=== PATIENT | male | born 2000 | race Caucasian/White ===

== ENCOUNTER 2018-07-12 19:41 | Emergency (ER) | payer BC ==
[2018-07-12 19:48] VITALS: BP 153/103
--- NOTE | 2018-07-12 20:21 | EDM.PDOC ---
ED HPI GENERAL MEDICAL PROBLEM - General Chief Complaint: General Stated Complaint: SHARP CHEST PAINS,PUKED [id number] Time Seen by Provider: 07/12/18 20:03 Source of Information: Reports: Patient, RN, RN Notes Reviewed History Limitations: Reports: No Limitations - History of Present Illness INITIAL COMMENTS - FREE TEXT/NARRATIVE: Pt to ER with c/o pain in the left chest since he played basketball on Wednesday. Patient states he did get hit in the left chest with another person's shoulder/ body, then he fell to the floor. Patient states the pain has gradually getting worse, with the pain being sharp at times. He states he feels as if his heart is going to stop at times, and feels like it is racing at times. Patient denies any SOB, fever, cough. He states he did vomit x2 on Wednesday. States he used ibuprofen x1 today without any relief. Onset: Gradual Location: Reports: Chest Quality: Reports: Sharp Severity: Moderate Improves with: Reports: None Worsens with: Reports: None Associated Symptoms: Reports: Chest Pain Treatments DIRECTOR RADIO: Reports: NSAIDS Chest Pain Score (Numeric/FACES): 5 - Related Data Allergies Allergy/AdvReac Type Severity Reaction Status Date / Time Penicillins Allergy Hives Verified 07/12/18 19:53 Home Meds: Home Meds Ibuprofen 4 tab PO ASDIRECTED PRN 01/26/16 [History] Past Medical History Respiratory History: Reports: Pneumonia, Recurrent Other Respiratory History: as child - Past Surgical History HEENT Surgical History: Reports: Adenoidectomy, Myringotomy w Tube(s), Tonsillectomy Social & Family History - Tobacco Use Smoking Status *Q: Current Every Day Smoker Years of Tobacco use: 2 Packs/Tins Daily: 0.2 - Caffeine Use Caffeine Use: Reports: Soda - Recreational Drug Use Recreational Drug Use: No ED ROS GENERAL - Review of Systems Review Of Systems: ROS reveals no pertinent complaints other than HPI. ED EXAM, GENERAL - Physical Exam Exam: See Below Exam Limited By: No Limitations General Appearance: Alert, WD/WN, Anxious Eye Exam: Bilateral Eye: EOMI, Normal Inspection Ears: Normal External Exam, Hearing Grossly Normal Nose: Normal Inspection Throat/Mouth: Normal Inspection, Normal Voice, No Airway Compromise Head: Atraumatic, Normocephalic Neck: Normal Inspection, Supple, Non-Tender, Full Range of Motion Respiratory/Chest: No Respiratory Distress, Lungs Clear, Normal Breath Sounds, No Accessory Muscle Use, Chest Non-Tender Cardiovascular: Normal Peripheral Pulses, Regular Rate, Rhythm, No Edema, No Gallop, No JVD, No Murmur, No Rub Peripheral Pulses: 2+: Radial (L), Radial (R) GI/Abdominal: Normal Bowel Sounds, Soft, Non-Tender (Male) Exam: Deferred Rectal (Males) Exam: Deferred Back Exam: Normal Inspection, Full Range of Motion Extremities: Normal Inspection, Normal Range of Motion, Non-Tender, No Pedal Edema, Normal Capillary Refill Neurological: Alert, Oriented, CN II-XII Intact, Normal Cognition, Normal Gait, Normal Reflexes, No Motor/Sensory Deficits Psychiatric: Normal Mood, Anxious Skin Exam: Warm, Dry, Intact, Normal Color, No Rash Lymphatic: No Adenopathy EKG INTERPRETATION EKG Date: 07/12/18 Time: 20:17 Rhythm: NSR Rate (Beats/Min): 74 [place]: Normal P-Wave: Present QRS: Normal ST-T: Normal QT: Normal Comparison: NA - No Prior EKG Course - Vital Signs Last Recorded V/S: Last Vital Signs Temp 97.0 F 07/12/18 19:47 Pulse 72 07/12/18 19:47 Resp 18 07/12/18 19:47 BP 153/103 H 07/12/18 19:47 Pulse Ox 96 07/12/18 19:47 - Orders/Labs/Meds Orders: Active Orders 24 hr Category Date Time Status EKG Documentation Completion [RC] STAT Care 07/12/18 20:14 Active Orphenadrine [Norflex] Med 07/12/18 20:45 Active 60 mg IM Q12H Medication Orders Orphenadrine Citrate (Norflex) 60 mg IM Q12H LEONOR Last Admin: 07/12/18 20:54 Dose: 60 mg Meds: Medications Generic Name Dose Route Start Last Admin Trade Name Freq PRN Reason Stop Dose Admin Orphenadrine Citrate 60 mg 07/12/18 20:45 07/12/18 20:54 Norflex IM 60 mg Q12H LEONOR Administration Discontinued Medications Generic Name Dose Route Start Last Admin Trade Name Freq PRN Reason Stop Dose Admin Ketorolac Tromethamine 60 mg 07/12/18 20:45 07/12/18 20:51 Toradol IM 07/12/18 20:46 60 mg ONETIME ONE Administration - Radiology Interpretation Free Text/Narrative:: Chest xray: FINDINGS: Lungs: Unremarkable. No consolidation. Pleural space: Unremarkable. No pleural effusion. No pneumothorax. Heart/Mediastinum: Unremarkable. No cardiomegaly. Bones/joints: Unremarkable. IMPRESSION: No acute findings. Thank you for allowing us to participate in the care of your patient. Dictated and Authenticated by: Juan Ceballos MD 07/12/2018 8:46 PM Central Time ([place] & [place]) See rad report - Re-Assessments/Exams Free Text/Narrative Re-Assessment/Exam: 07/12/18 21:17 Patient states some pain relief after Ketorolac and Norflex injections. Patient admits to anxiety. Discussed findings with patient and mother. Encouraged him to get an appointment at the clinic for anxiety. Patient and mother agree and state understanding. Departure - Departure Time of Disposition: 21:18 Disposition: Home, Self-Care 01 Condition: Fair Clinical Impression: Anxiety, Muscle strain of anterior chest wall - Discharge Information *PRESCRIPTION DRUG MONITORING PROGRAM REVIEWED*: No *COPY OF PRESCRIPTION DRUG MONITORING REPORT IN PATIENT BARRIE: No Instructions: Panic Attack, [id number], Muscle Strain, [id number], Generalized Anxiety Disorder, Adult Forms: ED Department Discharge Additional Instructions: Follow up with your primary care facility May use Tylenol and/or Ibuprofen as directed for pain. Ibuprofen may be more beneficial. May take 600-800mg every 8 hours for pain with food for a few days only. - My Orders Last 24 Hours: My Active Orders 07/12/18 20:14 EKG Documentation Completion [RC] STAT 07/12/18 20:45 Orphenadrine [Norflex] 60 mg IM Q12H - Assessment/Plan Last 24 Hours: My Active Orders 07/12/18 20:14 EKG Documentation Completion [RC] STAT 07/12/18 20:45 Orphenadrine [Norflex] 60 mg IM Q12H
[2018-07-12] MEDS ORDERED: Ketorolac 30 MG/ML SDV IM ONE (20:45)
== END 2018-07-12 21:25 | disposition home or self-care (01) ==
LOC: DL.ED 19:41
DX: S29.011A Strain of muscle and tendon of front wall of thorax, initial encounter (principal); F41.9 Anxiety disorder, unspecified; F17.210 Nicotine dependence, cigarettes, uncomplicated; Z88.0 Allergy status to penicillin; W51.XXXA Accidental striking against or bumped into by another person, initial encounter; Y93.67 Activity, basketball
CPT/HCPCS: 71101; 93005; 96372; 99285; J1885; J2360

== ENCOUNTER 2018-07-16 15:49 | Emergency (ER) | payer BC ==
[2018-07-16 16:02] VITALS: BP 152/79
[2018-07-16] MEDS ORDERED: Sodium Chloride 0.9% 10 ML Syringe FLUSH PRN (16:12)
[2018-07-16] MEDS ORDERED: Pantoprazole 40 MG Vial IVPUSH ONE (16:12)
[2018-07-16] MEDS ORDERED: Sodium Chloride 0.9% 1,000 ML IV ONE (16:12)
[2018-07-16] MEDS ORDERED: LORazepam 2 MG/ML Syringe IVPUSH ONE (16:13)
[2018-07-16] MEDS ORDERED: GI Cocktail Oral Solution 30 ML PO ONE (16:13)
[2018-07-16] MEDS ORDERED: LORazepam 2 MG/ML Syringe IM ONE (16:43)
[2018-07-16 17:02] LABS: ANION GAP 16.3; CHLORIDE,CL 102 mmol/L (101-111); SODIUM,NA 139 mmol/L (135-145)
--- NOTE | 2018-07-16 17:25 | EDM.PDOC ---
Scribed by Sara Santacruz 07/16/18 2437 for Delia Magallon MD ED HPI GENERAL MEDICAL PROBLEM - General Chief Complaint: Respiratory Problem Stated Complaint: TROUBLE BREATHING Time Seen by Provider: 07/16/18 15:59 Source of Information: Reports: Patient, RN, RN Notes Reviewed History Limitations: Reports: No Limitations - History of Present Illness INITIAL COMMENTS - FREE TEXT/NARRATIVE: Patient presents to ER by POV with complaint of pain in his throat and midline neck which radiates up from the epigastric abdomen with sharp and burning pain and spasms. Pt states he has been belching a lot since these symptoms began on . He was seen here on 07/12/18, and followed after that in clinic with Dr. Velasco, but he is no better. Duration: Constant Location: Reports: Neck, Chest, Abdomen Quality: Reports: Burning, Sharp, Other (Spasms) Severity: Severe Improves with: Reports: None Worsens with: Reports: Eating Associated Symptoms: Reports: Other (Anxiety) Generalized Pain Score (Numeric/FACES): 6 - Related Data Allergies Allergy/AdvReac Type Severity Reaction Status Date / Time Penicillins Allergy Hives Verified 07/16/18 15:56 Home Meds: Home Meds Ibuprofen 4 tab PO ASDIRECTED PRN 01/26/16 [History] Cyclobenzaprine HCl 5 mg PO Q8H PRN 07/16/18 [History] methylPREDNISolone [Methylprednisolone] 4 mg PO DAILY 07/16/18 [History] Past Medical History HEENT History: Reports: None Cardiovascular History: Reports: None Respiratory History: Reports: Pneumonia, Recurrent Other Respiratory History: as child Gastrointestinal History: Reports: None Genitourinary History: Reports: None Musculoskeletal History: Reports: None Neurological History: Reports: None Psychiatric History: Reports: Anxiety Endocrine/Metabolic History: Reports: Obesity/BMI 30+ Hematologic History: Reports: None Immunologic History: Reports: None Oncologic (Cancer) History: Reports: None Dermatologic History: Reports: Cellulitis - Infectious Disease History Infectious Disease History: Reports: None - Past Surgical History Head Surgeries/Procedures: Reports: None HEENT Surgical History: Reports: Adenoidectomy, Myringotomy w Tube(s), Tonsillectomy Social & Family History - Family History Family Medical History: Noncontributory - Tobacco Use Smoking Status *Q: Former Smoker Used Tobacco, but Quit: Yes Month/Year Tobacco Last Used: 2019 - Caffeine Use Caffeine Use: Reports: None - Recreational Drug Use Recreational Drug Use: Yes Recreational Drug Type: Reports: Marijuana/Hashish - Living Situation & Occupation Living situation: Reports: with Family Occupation: Employed ED ROS GENERAL - Review of Systems Review Of Systems: ROS reveals no pertinent complaints other than HPI. ED EXAM, GENERAL - Physical Exam Exam: See Below Exam Limited By: No Limitations General Appearance: Alert, WD/WN, No Apparent Distress, Anxious, Obese Eye Exam: Bilateral Eye: Normal Inspection Ears: Normal External Exam, Normal Canal, Hearing Grossly Normal, Normal TMs Nose: Normal Inspection, Normal Mucosa, No Blood Throat/Mouth: Normal Inspection, Normal Lips, Normal Teeth, Normal Gums, Normal Oropharynx, Normal Voice, No Airway Compromise Head: Atraumatic, Normocephalic Neck: Normal Inspection, Supple, Non-Tender, Full Range of Motion. No: Lymphadenopathy (L), Lymphadenopathy (R) Respiratory/Chest: No Respiratory Distress, No Accessory Muscle Use, Wheezing ( mild intermittent, expiratory wheezes) Cardiovascular: Normal Peripheral Pulses, Regular Rate, Rhythm, No Edema, No Gallop, No JVD, No Murmur, No Rub GI/Abdominal: Normal Bowel Sounds, Soft, No Organomegaly, No Distention, Tender (at epigastric region). No: Guarding, Rigid, Rebound Back Exam: Normal Inspection Extremities: Normal Inspection Neurological: Alert, Oriented, CN II-XII Intact, Normal Cognition, Normal Gait, No Motor/Sensory Deficits Psychiatric: Anxious Skin Exam: Warm, Dry, Intact, Normal Color, No Rash EKG INTERPRETATION EKG Date: 07/16/18 Time: 16:40 Rhythm: Other (sinus rhythm) Rate (Beats/Min): 68 [place]: Normal P-Wave: Present QRS: Normal ST-T: Normal QT: Normal Comparison: NA - No Prior EKG Course - Vital Signs Last Recorded V/S: Last Vital Signs Temp 36.1 C 07/16/18 15:56 Pulse 60 07/16/18 15:56 Resp 20 07/16/18 15:56 BP 152/79 H 07/16/18 15:56 Pulse Ox 97 07/16/18 15:56 - Orders/Labs/Meds Orders: Active Orders 24 hr Category Date Time Status EKG 12 Lead [EKG Documentation Completion] [RC] STAT Care 07/16/18 16:12 Active Peripheral IV Care [RC] . DIRECTED Care 07/16/18 16:12 Active Chest 2V [CR] Stat Exams 07/16/18 16:41 Taken Sodium Chloride 0.9% [Saline Flush] Med 07/16/18 16:12 Active 10 ml FLUSH ASDIRECTED PRN Peripheral IV Insertion Adult [OM.PC] Stat Oth 07/16/18 16:12 Ordered Medication Orders Sodium Chloride (Saline Flush) 10 ml FLUSH ASDIRECTED PRN PRN Reason: Keep Vein Open Labs: Laboratory Tests 07/16/18 07/16/18 07/16/18 Range/Units 16:34 16:34 16:34 WBC 11.2 H (5.0-10.0) 10^3/uL RBC 6.02 (4.6-6.2) 10^6/uL Hgb 17.2 (14.0-18.0) g/dL Hct 49.2 (40.0-54.0) % MCV 81.7 (80-100) fL MCH 28.6 (27.0-34.0) pg MCHC 35.0 (33.0-35.0) g/dL Plt Count 246 (150-450) 10^3/uL Neut % (Auto) 74.4 (42.2-75.2) % Lymph % (Auto) 16.0 L (20.5-50.1) % Mcmullen % (Auto) 8.7 H (2-8) % Eos % (Auto) 0.6 L (1.0-3.0) % Baso % (Auto) 0.3 (0.0-1.0) % D-Dimer, Quantitative < 100 (0-400) ng/mL Sodium 139 (135-145) mmol/L Potassium 3.3 L (3.6-5.0) mmol/L Chloride 102 (101-111) mmol/L Carbon Dioxide 24.0 (21.0-31.0) mmol/L Anion Gap 16.3 BUN 13 (7-18) mg/dL Creatinine 1.1 (0.6-1.3) mg/dL Est Cr Clr Drug Dosing 117.58 mL/min Estimated GFR (MDRD) > 60 BUN/Creatinine Ratio 11.81 Glucose 99 (74-105) mg/dL Calcium 9.6 (8.4-10.2) mg/dl Total Bilirubin 1.0 (0.2-1.0) mg/dL AST 33 (10-42) IU/L ALT 43 (10-60) IU/L Alkaline Phosphatase 85 (42-121) IU/L Troponin I < 0.02 (0.00-0.02) ng/ml Total Protein 7.8 (6.7-8.2) g/dl Albumin 4.7 (3.2-5.5) g/dl Globulin 3.1 Albumin/Globulin Ratio 1.52 Amylase 26 L (28-100) U/L Lipase 20 L (22-51) U/L Meds: Medications Generic Name Dose Route Start Last Admin Trade Name Freq PRN Reason Stop Dose Admin Sodium Chloride 10 ml 07/16/18 16:12 Saline Flush FLUSH ASDIRECTED PRN Keep Vein Open Discontinued Medications Generic Name Dose Route Start Last Admin Trade Name Freq PRN Reason Stop Dose Admin Al Hydroxide/Mg Hydroxide 30 ml 07/16/18 16:13 07/16/18 16:38 Gi Cocktail PO 07/16/18 16:14 30 ml ONETIME ONE Administration Sodium Chloride 1,000 mls @ 999 mls/hr 07/16/18 16:12 Normal Saline IV 07/16/18 17:12 .BOLUS ONE Lorazepam 1 mg 07/16/18 16:13 Ativan IVPUSH 07/16/18 16:14 ONETIME ONE Lorazepam 1 mg 07/16/18 16:43 07/16/18 16:44 Ativan IM 07/16/18 16:44 1 mg ONETIME ONE Administration Pantoprazole Sodium 40 mg 07/16/18 16:12 Protonix Iv IVPUSH 07/16/18 16:13 ONETIME ONE - Radiology Interpretation Free Text/Narrative:: [facility] Final Radiology Report Call: [phone] assistance Online chat: [email or web address] Name: RAMESH KITCHEN Age: 18Years M Date: 07/16/2018 SSN: -- : 2000 Study: XR CHEST 2 VIEWS Requesting Physician: DELIA MAGALLON Images: 3 Addl Studies: Provided Clinical History: Contrast: Contrast Medium: Contrast Amount: Contrast Method: CONFIDENTIALITY STATEMENT This report is intended only for use by the referring physician, and only in accordance with law. If you received this in error, call [phone]. Page 1 of 1 EXAM: XR Chest, 2 Views EXAM DATE/TIME: 07/16/2018 4:48 PM CLINICAL HISTORY: 18 years old, male; Signs and symptoms; Other: Chest pain TECHNIQUE: XR of the chest, 2 views. COMPARISON: CR Ribs 2V w Chest Lt 07/12/2018 8:16 PM FINDINGS: Lungs: Unremarkable. No consolidation. Pleural space: Unremarkable. No pleural effusion. No pneumothorax. Heart/Mediastinum: Unremarkable. No cardiomegaly. Bones/joints: Unremarkable. IMPRESSION: No acute findings. Thank you for allowing us to participate in the care of your patient. Dictated and Authenticated by: Alberto Headley DO 07/16/2018 5:04 PM Central Time ([place] & [place]) Departure - Departure Time of Disposition: 17:22 Disposition: Home, Self-Care 01 Condition: Good Clinical Impression: Esophageal spasm - Discharge Information *PRESCRIPTION DRUG MONITORING PROGRAM REVIEWED*: Not Applicable *COPY OF PRESCRIPTION DRUG MONITORING REPORT IN PATIENT BARRIE: Not Applicable Instructions: Esophageal Spasm Forms: ED Department Discharge Additional Instructions: Rx: Carafate 1g Rx: Omeprazole 20mg Avoid spicy, fatty/fried/greasy foods, alcohol, chocolate, mint, and caffeine. Follow up in clinic in 1 to 2 weeks for recheck. - My Orders Last 24 Hours: My Active Orders 07/16/18 16:12 EKG 12 Lead [EKG Documentation Completion] [RC] STAT Peripheral IV Care [RC] . DIRECTED Sodium Chloride 0.9% [Saline Flush] 10 ml FLUSH ASDIRECTED PRN Peripheral IV Insertion Adult [OM.PC] Stat 07/16/18 16:41 Chest 2V [CR] Stat - Assessment/Plan Last 24 Hours: My Active Orders 07/16/18 16:12 EKG 12 Lead [EKG Documentation Completion] [RC] STAT Peripheral IV Care [RC] . DIRECTED Sodium Chloride 0.9% [Saline Flush] 10 ml FLUSH ASDIRECTED PRN Peripheral IV Insertion Adult [OM.PC] Stat 07/16/18 16:41 Chest 2V [CR] Stat I have read and agree with the documentation that has been completed regarding this visit. By signing this record, I attest that the documentation was completed in my physical presence and is an accurate record of the encounter.
== END 2018-07-16 17:31 | disposition home or self-care (01) ==
LOC: DL.ED 15:49
DX: K22.4 Dyskinesia of esophagus (principal); Z88.0 Allergy status to penicillin; Z79.899 Other long term (current) drug therapy; Z87.891 Personal history of nicotine dependence
CPT/HCPCS: 36415; 71046; 80053; 82150; 83690; 84484; 85025; 85379; 93005; 96372; 99285; A9270; J2060

== ENCOUNTER 2018-07-30 23:30 | Emergency (ER) | payer BC ==
[2018-07-31 00:18] VITALS: BP 156/98
--- NOTE | 2018-07-31 00:20 | EDM.PDOC ---
ED HPI GENERAL MEDICAL PROBLEM - General Chief Complaint: Headache Stated Complaint: HEADACHE X 3 DAYS Time Seen by Provider: 07/31/18 00:12 Source of Information: Reports: Patient History Limitations: Reports: No Limitations - History of Present Illness INITIAL COMMENTS - FREE TEXT/NARRATIVE: c/o ULLOA past few days after taking new NSAID for non specific chest pain Dx as pleurisy and was eval' here and clinic and GF. father states pt got worried about possible meningitis since his class mate from it many years ago. explained to pt on s/s meningitis. pt states ULLOA varies from dull to sharp and on -off. exedrin does help but pain returns after awhile. Frontal Headache Pain Score (Numeric/FACES): 8 - Related Data Allergies Allergy/AdvReac Type Severity Reaction Status Date / Time Penicillins Allergy Hives Verified 07/31/18 00:18 Home Meds: Home Meds Ibuprofen 4 tab PO ASDIRECTED PRN 01/26/16 [History] Cyclobenzaprine HCl 5 mg PO Q8H PRN 07/16/18 [History] methylPREDNISolone [Methylprednisolone] 4 mg PO DAILY 07/16/18 [History] Past Medical History HEENT History: Reports: None Cardiovascular History: Reports: None Respiratory History: Reports: Pneumonia, Recurrent Other Respiratory History: as child Gastrointestinal History: Reports: None Genitourinary History: Reports: None Musculoskeletal History: Reports: None Neurological History: Reports: None Psychiatric History: Reports: Anxiety Endocrine/Metabolic History: Reports: Obesity/BMI 30+ Hematologic History: Reports: None Immunologic History: Reports: None Oncologic (Cancer) History: Reports: None Dermatologic History: Reports: Cellulitis - Infectious Disease History Infectious Disease History: Reports: None - Past Surgical History Head Surgeries/Procedures: Reports: None HEENT Surgical History: Reports: Adenoidectomy, Myringotomy w Tube(s), Tonsillectomy Social & Family History - Family History Family Medical History: Noncontributory - Caffeine Use Caffeine Use: Reports: None - Living Situation & Occupation Living situation: Reports: with Family Occupation: Employed ED ROS GENERAL - Review of Systems Review Of Systems: ROS reveals no pertinent complaints other than HPI. - Physical Exam Exam: See Below Exam Limited By: No Limitations General Appearance: Alert, WD/WN, Anxious, Mild Distress Eye Exam: Bilateral Eye: PERRL (pupils ER @ 4mm) Ears: Hearing Grossly Normal Throat/Mouth: Normal Voice, No Airway Compromise Head Exam: Atraumatic Neck: Non-Tender, Full Range of Motion Respiratory/Chest: No Respiratory Distress Cardiovascular: Regular Rate, Rhythm GI/Abdominal: Soft, Non-Tender Neuro Exam (Abbreviated): Alert, Oriented, Normal Cognition, Normal Gait, No Motor/Sensory Deficits Psychiatric: Flat Affect Skin Exam: Warm, Dry, Normal Color Course - Vital Signs Last Recorded V/S: Last Vital Signs Temp 36.5 C 07/30/18 23:48 Pulse 58 L 07/30/18 23:48 Resp 18 07/30/18 23:48 BP 156/98 H 07/30/18 23:48 Pulse Ox 99 07/30/18 23:48 - Orders/Labs/Meds Orders: Active Orders 24 hr Category Date Time Status Head wo Cont [CT] Urgent Exams 07/31/18 00:11 Taken Ketorolac [Toradol] Med 07/31/18 01:28 Once 10 mg PO ONETIME ONE - Re-Assessments/Exams Free Text/Narrative Re-Assessment/Exam: 07/31/18 01:28 results discussed with pt Departure - Departure Time of Disposition: 01:28 Disposition: Home, Self-Care 01 Condition: Good Clinical Impression: Tension-type headache - Discharge Information Instructions: General Headache Without Cause, [id number] Forms: ED Department Discharge Additional Instructions: 1) rest 2) follow up at clinic rx given; toradol 10mg bid prn x 12 - My Orders Last 24 Hours: My Active Orders 07/31/18 00:11 Head wo Cont [CT] Urgent 07/31/18 01:28 Ketorolac [Toradol] 10 mg PO ONETIME ONE - Assessment/Plan Last 24 Hours: My Active Orders 07/31/18 00:11 Head wo Cont [CT] Urgent 07/31/18 01:28 Ketorolac [Toradol] 10 mg PO ONETIME ONE
[2018-07-31] MEDS ORDERED: Ketorolac 10 MG Tab PO ONE (01:28)
== END 2018-07-31 01:38 | disposition home or self-care (01) ==
LOC: DL.ED 23:30 → EEVIPCON 23:30 → DL.ED 07-31 01:38
DX: G44.209 Tension-type headache, unspecified, not intractable (principal); Z88.0 Allergy status to penicillin; Z79.899 Other long term (current) drug therapy
CPT/HCPCS: 70450; 99283; A9270

== ENCOUNTER 2018-08-08 00:52 | Emergency (ER) | payer BC ==
[2018-08-08 00:58] VITALS: BP 169/103
--- NOTE | 2018-08-08 01:16 | EDM.PDOC ---
ED HPI GENERAL MEDICAL PROBLEM - General Chief Complaint: Chest Pain Stated Complaint: CHEST PAIN AND ARM IS NUMB Time Seen by Provider: 08/08/18 01:00 Source of Information: Reports: Patient History Limitations: Reports: No Limitations - History of Present Illness INITIAL COMMENTS - FREE TEXT/NARRATIVE: This 18 yo male patient reports to the ED with chest pain that started at 1600 yesterday afternoon. The patient reports he had generalized chest pain that caused both arms to go "numb". The patient reports at this time his left arm still has numbness. The patient reports he has had intermittent similar episodes in the past month. The patient has been seen in the ED as well as seen by his primary care facility for these symptoms. The patient is currently taking medication for acid reflux, a muscle relaxer and an antiinflammatory medication, but continues to have symptoms. Onset Date: 08/07/18 Onset Time: 16:00 Duration: Constant, Improving Location: Reports: Chest, Upper Extremity, Left, Upper Extremity, Right Quality: Reports: Other Severity: Moderate Improves with: Reports: None Worsens with: Reports: None Associated Symptoms: Reports: No Other Symptoms Left Chest Pain Score (Numeric/FACES): 8 - Related Data Allergies Allergy/AdvReac Type Severity Reaction Status Date / Time Penicillins Allergy Hives Verified 08/08/18 01:16 Home Meds: Home Meds Omeprazole 20 mg PO DAILY 08/08/18 [History] tiZANidine [Zanaflex] 4 mg PO TID 08/08/18 [History] traZODone HCl [Trazodone HCl] 50 mg PO DAILY 08/08/18 [History] Past Medical History HEENT History: Reports: None Cardiovascular History: Reports: None Respiratory History: Reports: Pneumonia, Recurrent Other Respiratory History: as child Gastrointestinal History: Reports: None Genitourinary History: Reports: None Musculoskeletal History: Reports: None Neurological History: Reports: None Psychiatric History: Reports: Anxiety Endocrine/Metabolic History: Reports: Obesity/BMI 30+ Hematologic History: Reports: None Immunologic History: Reports: None Oncologic (Cancer) History: Reports: None Dermatologic History: Reports: Cellulitis - Infectious Disease History Infectious Disease History: Reports: None - Past Surgical History Head Surgeries/Procedures: Reports: None HEENT Surgical History: Reports: Adenoidectomy, Myringotomy w Tube(s), Tonsillectomy Social & Family History - Family History Family Medical History: Noncontributory - Caffeine Use Caffeine Use: Reports: None - Living Situation & Occupation Living situation: Reports: with Family Occupation: Employed ED ROS GENERAL - Review of Systems Review Of Systems: ROS reveals no pertinent complaints other than HPI. ED EXAM, GENERAL - Physical Exam Exam: See Below Exam Limited By: No Limitations General Appearance: Alert, WD/WN, Anxious (due to chest pain and arm numbness) Eye Exam: Bilateral Eye: EOMI, Normal Inspection, PERRL Ears: Normal External Exam, Normal Canal, Hearing Grossly Normal, Normal TMs Nose: Normal Inspection, Normal Mucosa, No Blood Throat/Mouth: Normal Inspection, Normal Lips, Normal Teeth, Normal Gums, Normal Oropharynx, Normal Voice, No Airway Compromise Head: Atraumatic, Normocephalic Neck: Normal Inspection, Supple, Non-Tender, Full Range of Motion Respiratory/Chest: No Respiratory Distress, Lungs Clear, Normal Breath Sounds, No Accessory Muscle Use, Chest Non-Tender Cardiovascular: Normal Peripheral Pulses, Regular Rate, Rhythm, No Edema, No Gallop, No JVD, No Murmur, No Rub GI/Abdominal: Normal Bowel Sounds, Soft, Non-Tender, No Organomegaly, No Distention, No Abnormal Bruit, No Mass, Other (obese) (Male) Exam: Deferred Rectal (Males) Exam: Deferred Back Exam: Normal Inspection, Full Range of Motion, NT Extremities: Normal Inspection, Normal Range of Motion, Non-Tender, Normal Capillary Refill, No Pedal Edema Neurological: Alert, Oriented, CN II-XII Intact, Normal Cognition, Normal Gait, Normal Reflexes, No Motor/Sensory Deficits Psychiatric: Normal Affect, Normal Mood Skin Exam: Warm, Dry, Intact, Normal Color, No Rash Lymphatic: No Adenopathy Course - Vital Signs Last Recorded V/S: Last Vital Signs Temp 37.1 C 08/08/18 00:57 Pulse 63 08/08/18 00:57 Resp 13 08/08/18 00:57 BP 169/103 H 08/08/18 00:57 Pulse Ox 99 08/08/18 00:57 - Orders/Labs/Meds Orders: Active Orders 24 hr Category Date Time Status EKG Documentation Completion [RC] URGENT Care 08/08/18 01:01 Active Chest 1V Frontal [CR] Urgent Exams 08/08/18 01:11 Taken Labs: Laboratory Tests 08/08/18 08/08/18 Range/Units 01:12 01:12 WBC 12.0 H (5.0-10.0) 10^3/uL RBC 5.85 (4.6-6.2) 10^6/uL Hgb 16.7 (14.0-18.0) g/dL Hct 48.1 (40.0-54.0) % MCV 82.2 (80-100) fL MCH 28.5 (27.0-34.0) pg MCHC 34.7 (33.0-35.0) g/dL Plt Count 190 (150-450) 10^3/uL Neut % (Auto) 66.4 (42.2-75.2) % Lymph % (Auto) 21.8 (20.5-50.1) % [place] % (Auto) 9.0 H (2-8) % Eos % (Auto) 2.5 (1.0-3.0) % Baso % (Auto) 0.3 (0.0-1.0) % Sodium 139 (135-145) mmol/L Potassium 3.6 (3.6-5.0) mmol/L Chloride 103 (101-111) mmol/L Carbon Dioxide 26.0 (21.0-31.0) mmol/L Anion Gap 13.6 BUN 20 H (7-18) mg/dL Creatinine 0.8 (0.6-1.3) mg/dL Est Cr Clr Drug Dosing 161.67 mL/min Estimated GFR (MDRD) > 60 BUN/Creatinine Ratio 25.00 Glucose 95 (74-105) mg/dL Calcium 9.6 (8.4-10.2) mg/dl Total Bilirubin 0.9 (0.2-1.0) mg/dL AST 20 (10-42) IU/L ALT 30 (10-60) IU/L Alkaline Phosphatase 69 (42-121) IU/L Troponin I < 0.02 (0.00-0.02) ng/ml Total Protein 7.1 (6.7-8.2) g/dl Albumin 4.3 (3.2-5.5) g/dl Globulin 2.8 Albumin/Globulin Ratio 1.54 Meds: Medications Discontinued Medications Generic Name Dose Route Start Last Admin Trade Name Freq PRN Reason Stop Dose Admin Ketorolac Tromethamine 30 mg 08/08/18 01:55 08/08/18 02:02 Toradol IM 08/08/18 01:56 30 mg ONETIME ONE Administration Lorazepam 1 mg 08/08/18 01:55 08/08/18 02:01 Ativan PO 08/08/18 01:56 1 mg ONETIME ONE Administration - Re-Assessments/Exams Free Text/Narrative Re-Assessment/Exam: 08/08/18 01:56 Discussed the examination, x-ray and lab results with the patient. The patient was advised that stress and anxiety may have something to do with his current symptoms. The patient was given an injection of Toradol and an oral dose of Ativan while in the ED. Departure - Departure Time of Disposition: 02:36 Disposition: Home, Self-Care 01 Condition: Fair Clinical Impression: Nonspecific chest pain, Anxiety about health Instructions: Nonspecific Chest Pain, [id number], Living With Anxiety Forms: ED Department Discharge Care Plan Goals: The patient was advised of the examination, lab, EKG and x-ray results during the visit. The patient was given an injection of Toradol and an oral dose of Ativan while in the ED with improvement in his symptoms. The patient was encouraged to follow-up with his primary care facility for continued evaluation and further treatment. If the patient has any additional symptoms or concerns, the patient should either return to the emergency department or visit his primary care facility. - My Orders Last 24 Hours: My Active Orders 08/08/18 01:01 EKG Documentation Completion [RC] URGENT 08/08/18 01:11 Chest 1V Frontal [CR] Urgent - Assessment/Plan Last 24 Hours: My Active Orders 08/08/18 01:01 EKG Documentation Completion [RC] URGENT 08/08/18 01:11 Chest 1V Frontal [CR] Urgent
[2018-08-08 01:39] LABS: ANION GAP 13.6; CHLORIDE,CL 103 mmol/L (101-111); SODIUM,NA 139 mmol/L (135-145)
[2018-08-08] MEDS ORDERED: Ketorolac 30 MG/ML SDV IM ONE (01:55)
[2018-08-08] MEDS ORDERED: LORazepam 1 MG Tab PO ONE (01:55)
== END 2018-08-08 02:45 | disposition home or self-care (01) ==
LOC: DL.ED 00:52
DX: R07.9 Chest pain, unspecified (principal); F41.9 Anxiety disorder, unspecified; Z88.0 Allergy status to penicillin; Z79.899 Other long term (current) drug therapy
CPT/HCPCS: 36415; 71045; 80053; 84484; 85025; 93005; 96372; 99285; A9270-GY; J1885

== ENCOUNTER 2018-09-09 05:48 | Day surgery (SDC) | payer BC ==
[~2018-09-09 05:48] MED LIST: Midazolam 1 MG/ML 2 ML SDV ONE; fentaNYL 100 MCG/2 ML SDV ONE
[2018-09-09] MEDS ORDERED: fentaNYL 100 MCG/2 ML SDV IV ONE ×3 (05:49→07:00)
[2018-09-09] MEDS ORDERED: Midazolam 1 MG/ML 2 ML SDV IV ONE ×3 (05:49→07:01)
[2018-09-09] MEDS ORDERED: Sodium Chloride 0.9% 10 ML Syringe FLUSH PRN (06:00)
[2018-09-09] MEDS ORDERED: Dextrose 5%-0.45% NaCl 1,000 ML IV SCH (06:00)
--- NOTE | 2018-09-09 07:30 | OR ---
DATE: 09/09/2018 PROCEDURES PERFORMED: Esophagogastroduodenoscopy and multiple pinch biopsies. INSTRUMENT USED: [id number]-HQ190 Olympus video panendoscope. PREMEDICATIONS: No oral or topical anesthesia used. Fentanyl 100 mcg intravenous, Versed 2 mg intravenous. Nasal O2 cannula. The procedure was done under pulse ox, BP recording, and theatrical rigger. INDICATIONS: The patient with longstanding heartburn, unexplained and not responsive to medical measures, on PPI. Esophagogastroduodenoscopy is performed for detection of any active erosive lesions, Benitez esophagus and/or malignancy also under consideration. H. pylori status to be determined. Endoscopic hemostasis therapy if needed. DESCRIPTION OF PROCEDURE: The scope was passed with ease. Adequate visualization of the esophagus was made from proximal to distal areas. No upper esophageal lesions identified. No distal esophageal stricture. No uphill or downhill esophageal varices. No [place]-Lux tear. No evidence of erosive esophagitis by Coke criteria. No esophageal polyp or tumor mass identified. Z-line was seen at around 40 cm distal to the oral verge, configuration consistent with grade 1 by ZAP classification. No proximal gastric varices noted. Gastric fundus examination by retroflexion showed no polypoid lesions. No gastric ulcer, malignant mass, or vascular ectasia identified. Duodenal bulb showed no ulcer. Visualized second part of the duodenum was unremarkable. Multiple pinch biopsies were taken from the gastric antrum and proximal body and sent for PyloriTek test for H. pylori, and if negative in an hour, the tissue was to be sent for histopathology. No bleeding was noted from any of the visualized areas at the completion of examination. Photographs were taken of the duodenal bulb, gastric antrum, fundus, and distal esophagus. IMPRESSION: Normal study. The patient tolerated the procedure well. [facility] /[id number]
[2018-09-09 13:32] VITALS: BP 147/79
== END 2018-09-09 10:08 | disposition home or self-care (01) ==
LOC: DL.ENDO 05:48
PROVIDERS: ATTEND Internal Medicine Gastroenterology
DX: R12 Heartburn (principal); F41.1 Generalized anxiety disorder; E66.09 Other obesity due to excess calories; Z68.41 Body mass index [BMI] 40.0-44.9, adult; Z88.0 Allergy status to penicillin
CPT/HCPCS: 43239; 87077; J2250; J3010; J7042

== ENCOUNTER 2018-12-06 13:00 | Emergency (ER) | payer BC, MEDICAID ==
[2018-12-06 13:09] VITALS: BP 149/92
--- NOTE | 2018-12-06 13:12 | EDM.PDOC ---
ED HPI GENERAL MEDICAL PROBLEM - General Chief Complaint: General Stated Complaint: SHAKY, DIZZY Time Seen by Provider: 12/06/18 13:11 Source of Information: Reports: Patient, Old Records, RN, RN Notes Reviewed History Limitations: Reports: No Limitations - History of Present Illness INITIAL COMMENTS - FREE TEXT/NARRATIVE: Pt presents to ER from work with c/o working out in the heat and direct sun since 0630HRS this morning, and this afternoon he developed lightheadedness, very dry mouth, feeling very hot, and had and generalized shaking. Pt denies chest pain, N/V, headache, abdominal pain, palpitations, or syncope. Onset: Today Duration: Waxing/Waning Location: Reports: Generalized Quality: Reports: Other (Denies pain) Severity: Moderate Improves with: Reports: None Worsens with: Reports: Other (Activity) Associated Symptoms: Reports: No Other Symptoms - Related Data Allergies Allergy/AdvReac Type Severity Reaction Status Date / Time amoxicillin Allergy Other Verified 12/06/18 13:14 Penicillins Allergy Hives Verified 12/06/18 13:14 Home Meds: Home Meds Omeprazole 40 mg PO ONETIME 12/06/18 [History] buPROPion HCl [Wellbutrin Xl] 300 mg PO DAILY 12/06/18 [History] hydrOXYzine HCl [hydrOXYzine] 25 mg PO TID 12/06/18 [History] Past Medical History HEENT History: Cardiovascular History: Reports: Other (See Below) Other Cardiovascular History: chest pain Respiratory History: Reports: Pneumonia, Recurrent Other Respiratory History: as child Gastrointestinal History: Reports: GERD Genitourinary History: Reports: None Musculoskeletal History: Reports: None Neurological History: Reports: None Psychiatric History: Reports: Anxiety Endocrine/Metabolic History: Reports: Obesity/BMI 30+ Hematologic History: Reports: None Immunologic History: Reports: None Oncologic (Cancer) History: Reports: None Dermatologic History: Reports: Cellulitis - Infectious Disease History Infectious Disease History: Reports: None - Past Surgical History Head Surgeries/Procedures: Reports: None HEENT Surgical History: Reports: Adenoidectomy, Myringotomy w Tube(s), Tonsillectomy Social & Family History - Family History Family Medical History: Noncontributory - Caffeine Use Caffeine Use: Reports: None - Living Situation & Occupation Living situation: Reports: with Family Occupation: Employed ED ROS GENERAL - Review of Systems Review Of Systems: ROS reveals no pertinent complaints other than HPI. ED EXAM, GENERAL - Physical Exam Exam: See Below Exam Limited By: No Limitations General Appearance: Alert, WD/WN, No Apparent Distress, Obese Eye Exam: Bilateral Eye: Normal Inspection Ears: Normal External Exam, Hearing Grossly Normal Nose: Normal Inspection, Normal Mucosa, No Blood Throat/Mouth: Normal Lips, Normal Teeth, Normal Gums, Normal Oropharynx, Normal Voice, No Airway Compromise, Other (Dry oral membranes) Head: Atraumatic, Normocephalic Neck: Normal Inspection, Supple, Non-Tender, Full Range of Motion. No: Lymphadenopathy (L), Lymphadenopathy (R) Respiratory/Chest: No Respiratory Distress, Lungs Clear, Normal Breath Sounds, No Accessory Muscle Use, Chest Non-Tender Cardiovascular: Regular Rate, Rhythm, No Edema, No Murmur GI/Abdominal: Normal Bowel Sounds, Soft, Non-Tender, Other (Benign obese abdomen ) Back Exam: Normal Inspection Extremities: Normal Inspection, Normal Range of Motion, Non-Tender, Normal Capillary Refill, No Pedal Edema Neurological: Alert, Oriented, CN II-XII Intact, Normal Cognition, Normal Gait, No Motor/Sensory Deficits Psychiatric: Normal Affect, Anxious Skin Exam: Warm, Dry, Intact, Normal Color, No Rash EKG INTERPRETATION EKG Date: 12/06/18 Time: 13:37 Rhythm: NSR [place]: Normal P-Wave: Present QRS: Normal ST-T: Normal QT: Normal Comparison: No Change Course - Vital Signs Last Recorded V/S: Last Vital Signs Temp 97.8 F 12/06/18 13:08 Pulse 78 12/06/18 13:08 Resp 18 12/06/18 13:08 BP 149/92 H 12/06/18 13:08 Pulse Ox 100 12/06/18 13:08 Orthostatic Blood Pressure [ 132/80 Standing] Orthostatic Blood Pressure [ 154/87 Sitting] Orthostatic Blood Pressure [ 138/81 Supine] No orthostatic dizziness. - Orders/Labs/Meds Orders: Active Orders 24 hr Category Date Time Status EKG 12 Lead [EKG Documentation Completion] [RC] STAT Care 12/06/18 13:17 Active Orthostatic Vital Signs [RC] ASDIRECTED Care 12/06/18 13:16 Active Peripheral IV Care [RC] . DIRECTED Care 12/06/18 13:17 Active Sodium Chloride 0.9% [Saline Flush] Med 12/06/18 13:16 Active 10 ml FLUSH ASDIRECTED PRN Peripheral IV Insertion Adult [OM.PC] Stat Oth 12/06/18 13:17 Ordered Medication Orders Sodium Chloride (Saline Flush) 10 ml FLUSH ASDIRECTED PRN PRN Reason: Keep Vein Open Last Admin: 12/06/18 13:40 Dose: 10 ml Labs: Laboratory Tests 12/06/18 12/06/18 12/06/18 Range/Units 13:37 13:37 13:37 WBC 8.3 (5.0-10.0) 10^3/uL RBC 6.32 H (4.6-6.2) 10^6/uL Hgb 17.4 (14.0-18.0) g/dL Hct 51.3 (40.0-54.0) % MCV 81.2 (80-100) fL MCH 27.5 (27.0-34.0) pg MCHC 33.9 (33.0-35.0) g/dL Plt Count 203 (150-450) 10^3/uL Neut % (Auto) 60.0 (42.2-75.2) % Lymph % (Auto) 25.0 (20.5-50.1) % Hale % (Auto) 11.5 H (2-8) % Eos % (Auto) 2.9 (1.0-3.0) % Baso % (Auto) 0.6 (0.0-1.0) % D-Dimer, Quantitative < 100 (0-400) ng/mL Sodium 140 (135-145) mmol/L Potassium 4.0 (3.6-5.0) mmol/L Chloride 107 (101-111) mmol/L Carbon Dioxide 23.0 (21.0-31.0) mmol/L Anion Gap 14.0 BUN 13 (7-18) mg/dL Creatinine 1.0 (0.6-1.3) mg/dL Est Cr Clr Drug Dosing 133.17 mL/min Estimated GFR (MDRD) > 60 BUN/Creatinine Ratio 13.00 Glucose 90 (74-105) mg/dL Calcium 9.0 (8.4-10.2) mg/dl Total Bilirubin 0.6 (0.2-1.0) mg/dL AST 24 (10-42) IU/L ALT 30 (10-60) IU/L Alkaline Phosphatase 87 (42-121) IU/L Troponin I < 0.02 (0.00-0.02) ng/ml Total Protein 7.2 (6.7-8.2) g/dl Albumin 4.3 (3.2-5.5) g/dl Globulin 2.9 Albumin/Globulin Ratio 1.48 Urine Color (YELLOW) Urine Appearance (CLEAR) Urine pH (5.0-9.0) Ur Specific [place] (1.005-1.030) Urine Protein (NEGATIVE) Urine Glucose (UA) (NEGATIVE) Urine Ketones (NEGATIVE) Urine Occult Blood (NEGATIVE) Urine Nitrite (NEGATIVE) Urine Bilirubin (NEGATIVE) Urine Urobilinogen (0.2-1.0) mg/dL Ur Leukocyte Esterase (NEGATIVE) Urine Opiates Screen (NEGATIVE) Ur Oxycodone Screen (NEGATIVE) Urine Methadone Screen (NEGATIVE) Ur Barbiturates Screen (NEGATIVE) U Tricyclic Antidepress (NEGATIVE) Ur Phencyclidine Scrn (NEGATIVE) Ur Amphetamine Screen (NEGATIVE) U Methamphetamines Scrn (NEGATIVE) Urine MDMA Screen (NEGATIVE) U Benzodiazepines Scrn (NEGATIVE) Urine Cocaine Screen (NEGATIVE) U Marijuana (THC) Screen (NEGATIVE) 12/06/18 12/06/18 Range/Units 14:01 14:01 WBC (5.0-10.0) 10^3/uL RBC (4.6-6.2) 10^6/uL Hgb (14.0-18.0) g/dL Hct (40.0-54.0) % MCV (80-100) fL MCH (27.0-34.0) pg MCHC (33.0-35.0) g/dL Plt Count (150-450) 10^3/uL Neut % (Auto) (42.2-75.2) % Lymph % (Auto) (20.5-50.1) % Hale % (Auto) (2-8) % Eos % (Auto) (1.0-3.0) % Baso % (Auto) (0.0-1.0) % D-Dimer, Quantitative (0-400) ng/mL Sodium (135-145) mmol/L Potassium (3.6-5.0) mmol/L Chloride (101-111) mmol/L Carbon Dioxide (21.0-31.0) mmol/L Anion Gap BUN (7-18) mg/dL Creatinine (0.6-1.3) mg/dL Est Cr Clr Drug Dosing mL/min Estimated GFR (MDRD) BUN/Creatinine Ratio Glucose (74-105) mg/dL Calcium (8.4-10.2) mg/dl Total Bilirubin (0.2-1.0) mg/dL AST (10-42) IU/L ALT (10-60) IU/L Alkaline Phosphatase (42-121) IU/L Troponin I (0.00-0.02) ng/ml Total Protein (6.7-8.2) g/dl Albumin (3.2-5.5) g/dl Globulin Albumin/Globulin Ratio Urine Color Yellow (YELLOW) Urine Appearance Clear (CLEAR) Urine pH 7.0 (5.0-9.0) Ur Specific [place] 1.020 (1.005-1.030) Urine Protein Negative (NEGATIVE) Urine Glucose (UA) Negative (NEGATIVE) Urine Ketones Negative (NEGATIVE) Urine Occult Blood Negative (NEGATIVE) Urine Nitrite Negative (NEGATIVE) Urine Bilirubin Negative (NEGATIVE) Urine Urobilinogen 0.2 (0.2-1.0) mg/dL Ur Leukocyte Esterase Negative (NEGATIVE) Urine Opiates Screen Negative (NEGATIVE) Ur Oxycodone Screen Negative (NEGATIVE) Urine Methadone Screen Negative (NEGATIVE) Ur Barbiturates Screen Negative (NEGATIVE) U Tricyclic Antidepress Negative (NEGATIVE) Ur Phencyclidine Scrn Negative (NEGATIVE) Ur Amphetamine Screen Negative (NEGATIVE) U Methamphetamines Scrn Negative (NEGATIVE) Urine MDMA Screen Negative (NEGATIVE) U Benzodiazepines Scrn Negative (NEGATIVE) Urine Cocaine Screen Negative (NEGATIVE) U Marijuana (THC) Screen Negative (NEGATIVE) Meds: Medications Generic Name Dose Route Start Last Admin Trade Name Freq PRN Reason Stop Dose Admin Sodium Chloride 10 ml 12/06/18 13:16 12/06/18 13:40 Saline Flush FLUSH 10 ml ASDIRECTED PRN Administration Keep Vein Open Discontinued Medications Generic Name Dose Route Start Last Admin Trade Name Freq PRN Reason Stop Dose Admin Sodium Chloride 1,000 mls @ 999 mls/hr 12/06/18 13:17 12/06/18 13:40 Normal Saline IV 12/06/18 14:17 999 mls/hr .BOLUS ONE Administration Departure - Departure Time of Disposition: 14:31 Disposition: Home, Self-Care 01 Condition: Good Clinical Impression: Dehydration Heat exhaustion Qualifiers: Encounter type: initial encounter Qualified Code(s): T67.5XXA - Heat exhaustion , unspecified, initial encounter - Discharge Information *PRESCRIPTION DRUG MONITORING PROGRAM REVIEWED*: No *COPY OF PRESCRIPTION DRUG MONITORING REPORT IN PATIENT BARRIE: No Instructions: Heat Exhaustion Information, Dehydration, Adult, [id number] Forms: ED Department Discharge Additional Instructions: Rest, drink plenty of water, and limit direct sun exposure to no more than two hours at a time with at least 30 minutes out of the sun and heat. Follow up in clinic if not improved in 1 to 2 days. - My Orders Last 24 Hours: My Active Orders 12/06/18 13:16 Orthostatic Vital Signs [RC] ASDIRECTED Sodium Chloride 0.9% [Saline Flush] 10 ml FLUSH ASDIRECTED PRN 12/06/18 13:17 EKG 12 Lead [EKG Documentation Completion] [RC] STAT Peripheral IV Care [RC] . DIRECTED Peripheral IV Insertion Adult [OM.PC] Stat - Assessment/Plan Last 24 Hours: My Active Orders 12/06/18 13:16 Orthostatic Vital Signs [RC] ASDIRECTED Sodium Chloride 0.9% [Saline Flush] 10 ml FLUSH ASDIRECTED PRN 12/06/18 13:17 EKG 12 Lead [EKG Documentation Completion] [RC] STAT Peripheral IV Care [RC] . DIRECTED Peripheral IV Insertion Adult [OM.PC] Stat
[2018-12-06] MEDS ORDERED: Sodium Chloride 0.9% 10 ML Syringe FLUSH PRN (13:16)
[2018-12-06] MEDS ORDERED: Sodium Chloride 0.9% 1,000 ML IV ONE (13:17)
[2018-12-06 14:12] LABS: CHLORIDE,CL 107 mmol/L (101-111); SODIUM,NA 140 mmol/L (135-145)
== END 2018-12-06 14:47 | disposition home or self-care (01) ==
LOC: DL.ED 13:00 → EEVIPCON 13:00 → DL.ED 14:47
DX: T67.5XXA Heat exhaustion, unspecified, initial encounter (principal); E86.0 Dehydration; K21.9 Gastro-esophageal reflux disease without esophagitis; F41.9 Anxiety disorder, unspecified; Z88.1 Allergy status to other antibiotic agents; Z88.0 Allergy status to penicillin; Z79.899 Other long term (current) drug therapy
CPT/HCPCS: 36415; 80053; 80305-QW; 81003; 84484; 85025; 85379; 93005; 96360; 99284-25; J7030

== ENCOUNTER 2019-12-27 22:28 | Emergency (ER) | payer BC, MEDICAID ==
[2019-12-27] MEDS ORDERED: Aspirin 81 MG Tab.Chew PO ONE (22:43)
[2019-12-27 23:05] VITALS: BP 147/67; PULSE 67
--- NOTE | 2019-12-27 23:05 | EDM.PDOC ---
ED HPI GENERAL MEDICAL PROBLEM - General Chief Complaint: Chest Pain Stated Complaint: CHEST PAIN Time Seen by Provider: 12/27/19 22:50 Source of Information: Reports: Patient History Limitations: Reports: No Limitations - History of Present Illness INITIAL COMMENTS - FREE TEXT/NARRATIVE: This 19 yo male patient reports to the ED with left sided chest pain that started about 30 minutes prior to arrival in the ED. The patient reports he was lying down as they were making supper when his pain began. The patient reports he had similar symptoms in the past for which he was started on medication for acid reflux. The patient reports he has not been taking these medications as he has been feeling better. The patient reports he was doing some yard work today, but nothing abnormal. Onset: Today Duration: Minutes: Location: Reports: Chest (left side) Quality: Reports: Ache, Sharp, Stabbing Severity: Severe Improves with: Reports: None Worsens with: Reports: None Context: Reports: Other Associated Symptoms: Reports: Chest Pain Left Chest Pain Score (Numeric/FACES): 7 - Related Data Allergies Allergy/AdvReac Type Severity Reaction Status Date / Time amoxicillin Allergy Other Verified 12/27/19 22:59 Penicillins Allergy Hives Verified 12/27/19 22:59 Home Meds: Home Meds Omeprazole 40 mg PO ONETIME 12/06/18 [History] buPROPion HCL [Wellbutrin Xl] 300 mg PO DAILY 12/06/18 [History] hydrOXYzine HCL [hydrOXYzine] 25 mg PO TID 12/06/18 [History] Past Medical History HEENT History: Cardiovascular History: Reports: Other (See Below) Other Cardiovascular History: chest pain Respiratory History: Reports: Pneumonia, Recurrent Other Respiratory History: as child Gastrointestinal History: Reports: GERD Genitourinary History: Reports: None Musculoskeletal History: Reports: None Neurological History: Reports: None Psychiatric History: Reports: Anxiety Endocrine/Metabolic History: Reports: Obesity/BMI 30+ Hematologic History: Reports: None Immunologic History: Reports: None Oncologic (Cancer) History: Reports: None Dermatologic History: Reports: Cellulitis - Infectious Disease History Infectious Disease History: Reports: None - Past Surgical History Head Surgeries/Procedures: Reports: None HEENT Surgical History: Reports: Adenoidectomy, Myringotomy w Tube(s), Tonsillectomy Social & Family History - Family History Family Medical History: Noncontributory - Caffeine Use Caffeine Use: Reports: None - Living Situation & Occupation Living situation: Reports: with Family Occupation: Employed ED ROS GENERAL - Review of Systems Review Of Systems: Comprehensive ROS is negative, except as noted in HPI. ED EXAM, GENERAL - Physical Exam Exam: See Below Exam Limited By: No Limitations General Appearance: Alert, WD/WN, Anxious, Moderate Distress, Obese Eye Exam: Bilateral Eye: EOMI, Normal Inspection, PERRL Ears: Normal External Exam, Normal Canal, Hearing Grossly Normal, Normal TMs Nose: Normal Inspection, Normal Mucosa, No Blood Throat/Mouth: Normal Inspection, Normal Lips, Normal Teeth, Normal Gums, Normal Oropharynx, Normal Voice, No Airway Compromise Head: Atraumatic, Normocephalic Neck: Normal Inspection, Supple, Non-Tender, Full Range of Motion Respiratory/Chest: No Respiratory Distress, Lungs Clear, Normal Breath Sounds, No Accessory Muscle Use, Chest Non-Tender Cardiovascular: Normal Peripheral Pulses, Regular Rate, Rhythm, No Edema, No Gallop, No JVD, No Murmur, No Rub GI/Abdominal: Normal Bowel Sounds, Soft, Non-Tender, No Organomegaly, No Distention, No Abnormal Bruit, No Mass (Male) Exam: Deferred Rectal (Males) Exam: Deferred Back Exam: Normal Inspection, Full Range of Motion, NT Extremities: Normal Inspection, Normal Range of Motion, Non-Tender, Normal Ca pillary Refill, No Pedal Edema Neurological: Alert, Oriented, CN II-XII Intact, Normal Cognition, Normal Gait, Normal Reflexes, No Motor/Sensory Deficits Psychiatric: Normal Affect, Normal Mood Skin Exam: Warm, Dry, Intact, Normal Color, No Rash Lymphatic: No Adenopathy Course - Vital Signs Last Recorded V/S: Last Vital Signs Temp 37.3 C 12/27/19 22:59 Pulse 67 12/27/19 22:59 Resp 20 12/27/19 22:59 BP 147/67 H 12/27/19 22:59 Pulse Ox 99 12/27/19 22:59 - Orders/Labs/Meds Orders: Active Orders 24 hr Category Date Time Status EKG Documentation Completion [RC] STAT Care 12/27/19 22:42 Active DRUG SCREEN URINE BIORAD [URCHEM] Stat Lab 12/27/19 22:42 Ordered UA RFX ARUNA AND CULT IF INDIC [URIN] Urgent Lab 12/27/19 22:42 Ordered Labs: Laboratory Tests 12/27/19 12/27/19 Range/Units 22:53 22:53 WBC 10.5 H (5.0-10.0) 10^3/uL RBC 6.32 H (4.6-6.2) 10^6/uL Hgb 17.8 (14.0-18.0) g/dL Hct 51.7 (40.0-54.0) % MCV 81.8 (80-100) fL MCH 28.2 (27.0-34.0) pg MCHC 34.4 (33.0-35.0) g/dL Plt Count 212 (150-450) 10^3/uL Neut % (Auto) 57.4 (42.2-75.2) % Lymph % (Auto) 28.8 (20.5-50.1) % Fannin % (Auto) 9.6 H (2-8) % Eos % (Auto) 3.6 H (1.0-3.0) % Baso % (Auto) 0.6 (0.0-1.0) % Add Manual Diff Yes Neutrophils % (Manual) 56 (42-75) % Lymphocytes % (Manual) 30 (20-50) % Monocytes % (Manual) 9 H (2-8) % Eosinophils % (Manual) 5 H (1-3) % Sodium 142 (136-145) mmol/L Potassium 4.2 (3.5-5.1) mmol/L Chloride 105 (98-107) mmol/L Carbon Dioxide 29 (21-32) mmol/L Anion Gap 12.2 (7-13) mEq/L BUN 13 (7-18) mg/dL Creatinine 1.15 (0.70-1.30) mg/dL Est Cr Clr Drug Dosing 118.14 mL/min Estimated GFR (MDRD) > 60 BUN/Creatinine Ratio 11.3 (No establ ref range) Glucose 93 (74-99) mg/dL Calcium 9.2 (8.5-10.1) mg/dL Total Bilirubin 0.5 (0.2-1.0) mg/dL AST 23 (15-37) U/L ALT 46 (16-63) U/L Alkaline Phosphatase 117 H (46-116) U/L Troponin I < 0.017 (0.000-0.056) ng/mL Total Protein 7.2 (6.4-8.2) g/dL Albumin 4.3 (3.4-5.0) g/dL Globulin 2.9 Albumin/Globulin Ratio 1.5 Meds: Medications Discontinued Medications Generic Name Dose Route Start Last Admin Trade Name Lg PRN Reason Stop Dose Admin Al Hydroxide/Mg Hydroxide 30 ml 12/27/19 23:50 12/28/19 00:10 Gi Cocktail PO 12/27/19 23:51 30 ml ONETIME ONE Administration Aspirin 324 mg 12/27/19 22:43 12/27/19 22:57 Aspirin PO 12/27/19 22:44 324 mg ONETIME ONE Administration - Re-Assessments/Exams Free Text/Narrative Re-Assessment/Exam: 12/28/19 00:40 The patient reports some improvement with the GI Cocktail. Departure - Departure Time of Disposition: 00:42 Disposition: Home, Self-Care 01 Condition: Fair Clinical Impression: GERD (gastroesophageal reflux disease) Qualifiers: Esophagitis presence: esophagitis presence not specified Qualified Code(s): K21.9 - Gastro-esophageal reflux disease without esophagitis Instructions: Food Choices for Gastroesophageal Reflux Disease, Adult, Gastroesophageal Reflux Disease, Adult, [id number] Forms: ED Department Discharge Care Plan Goals: The patient was advised of the examination, lab and EKG results during the visit. The patient was given a GI cocktail with some relief during the visit. The patient was discharged with a script for Omeprazole (20 mg) #30 to take 1 by mouth daily 30 minutes before eating. If the patient has any additional symptoms or concerns, the patient should either return to the emergency department or visit his primary care facility. Sepsis Event Note (ED) - Focused Exam Vital Signs: Vital Signs Temp Pulse Resp BP Pulse Ox 12/27/19 22:59 37.3 C 67 20 147/67 H 99 - My Orders Last 24 Hours: My Active Orders 12/27/19 22:42 EKG Documentation Completion [RC] STAT DRUG SCREEN URINE BIORAD [URCHEM] Stat UA RFX ARUNA AND CULT IF INDIC [URIN] Urgent - Assessment/Plan Last 24 Hours: My Active Orders 12/27/19 22:42 EKG Documentation Completion [RC] STAT DRUG SCREEN URINE BIORAD [URCHEM] Stat UA RFX ARUNA AND CULT IF INDIC [URIN] Urgent
[2019-12-27 23:27] LABS: ANION GAP 12.2 mEq/L (7-13); CHLORIDE,CL 105 mmol/L (98-107); SODIUM,NA 142 mmol/L (136-145)
[2019-12-27] MEDS ORDERED: GI Cocktail Oral Solution 30 ML PO ONE (23:50)
== END 2019-12-28 00:50 | disposition home or self-care (01) ==
LOC: DL.ED 22:28
DX: K21.9 Gastro-esophageal reflux disease without esophagitis (principal); F41.9 Anxiety disorder, unspecified; E66.9 Obesity, unspecified; Z68.43 Body mass index [BMI] 50.0-59.9, adult; Z88.1 Allergy status to other antibiotic agents; Z88.0 Allergy status to penicillin; Z79.899 Other long term (current) drug therapy
CPT/HCPCS: 36415; 80053; 84484; 85025; 93005; 99285; A9270

== ENCOUNTER 2021-01-06 06:51 | Emergency (ER) | payer SELFPAY ==
[2021-01-06 07:29] VITALS: BP 141/85; PULSE 80
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
--- NOTE | 2021-01-06 08:30 | CR ---
PROCEDURE INFORMATION: Exam: XR Right Ankle Exam date and time: 01/06/2021 7:43 AM Age: 20 years old Clinical indication: Injury or trauma; Fall; Swelling (edema); Ankle; Right; Additional info: Injury of right ankle TECHNIQUE: Imaging protocol: XR Right ankle. Views: 3 or more views. COMPARISON: No relevant prior studies available. FINDINGS: Bones/joints: Normal bone mineralization and alignment. No fracture or subluxation. No lytic or blastic bone lesion. No destructive bony lesion. Normal right ankle mortise. Os trigonum. Mild degenerative changes of right medial malleolus. Soft tissues: No periostitis. No soft tissue gas collection or radiopaque foreign body. IMPRESSION: No fracture or subluxation of the right ankle.
== END 2021-01-06 08:50 | disposition home or self-care (01) ==
LOC: DL.ED 06:51
DX: S93.401A Sprain of unspecified ligament of right ankle, initial encounter (principal); E66.9 Obesity, unspecified; K21.9 Gastro-esophageal reflux disease without esophagitis; Z79.899 Other long term (current) drug therapy; Z88.0 Allergy status to penicillin; Z68.43 Body mass index [BMI] 50.0-59.9, adult; W17.89XA Other fall from one level to another, initial encounter; X50.1XXA Overexertion from prolonged static or awkward postures, initial encounter
CPT/HCPCS: 73610-RT; 99283-25

== ENCOUNTER 2021-09-26 11:06 | Emergency (ER) | payer SELFPAY ==
[2021-09-26 11:32] VITALS: BP 149/90; PULSE 70
[2021-09-26] MEDS ORDERED: Ketorolac 30 MG/ML SDV IM ONE (11:48)
== END 2021-09-26 12:04 | disposition home or self-care (01) ==
LOC: DL.ED 11:06
DX: K04.7 Periapical abscess without sinus (principal); K21.9 Gastro-esophageal reflux disease without esophagitis; E66.9 Obesity, unspecified; Z68.45 Body mass index [BMI] 70 or greater, adult; Z88.0 Allergy status to penicillin; Z79.899 Other long term (current) drug therapy; Z72.0 Tobacco use
CPT/HCPCS: 96372; 99282; J1885

== ENCOUNTER 2023-01-31 08:52 | Emergency (ER) | payer SELFPAY ==
[2023-01-31 09:54] VITALS: BP 117/95; PULSE 69
== END 2023-01-31 10:25 | disposition home or self-care (01) ==
LOC: DL.ED 08:52
DX: R04.2 Hemoptysis (principal); U07.0 Vaping-related disorder; K21.9 Gastro-esophageal reflux disease without esophagitis; E66.9 Obesity, unspecified; F17.210 Nicotine dependence, cigarettes, uncomplicated; Z88.0 Allergy status to penicillin
CPT/HCPCS: 93010; 99283; 99285

== ENCOUNTER 2023-04-06 12:00 | Emergency (ER) | payer SELFPAY ==
[2023-04-06 12:30] VITALS: BP 172/90; PULSE 86
[2023-04-06] MEDS ORDERED: Sodium Chloride 0.9% 10 ML Syringe FLUSH PRN (12:38)
[2023-04-06 12:47] LABS: BASOPHILS PERCENT AUTO 0.6 % (0.0-1.0); EOSINOPHILS PERCENT AUTO 2.4 % (1.0-3.0); HEMATOCRIT 48.9 % (40.0-54.0); LYMPHOCYTES PERCENT AUTO 29.3 % (20.5-50.1); MEAN CORPUSCULAR HEMOGLOBIN 27.4 pg (27.0-34.0); MEAN CORPUSCULAR HGB CONC 32.7 g/dL (33.0-35.0); MEAN CORPUSCULAR VOLUME 83.9 fL (80-100); MONOCYTES PERCENT AUTO 7.7 % (2-8); PLATELET COUNT,PLT 231 10^3/uL (150-450); RED BLOOD CELL COUNT 5.83 10^6/uL (4.6-6.2); WHITE BLOOD CELL COUNT,WBC 8.8 10^3/uL (5.0-10.0)
[2023-04-06 13:00] LABS: ALANINE AMINOTRANSFERASE,ALT 43 U/L (16-63); ALBUMIN 3.7 g/dL (3.4-5.0); ALKALINE PHOSPHATASE 107 U/L (46-116); ANION GAP 12.9 mEq/L (7-13); ASPARTATE AMNIOTRANSFERASE,AST 18 U/L (15-37); BILIRUBIN TOTAL 0.3 mg/dL (0.2-1.0); BLOOD UREA NITROGEN,BUN 14 mg/dL (7-18); BUN/CREATININE RATIO 14.3 (No establ ref range); CARBON DIOXIDE,CO2 28 mmol/L (21-32); CHLORIDE,CL 104 mmol/L (98-107); CREATININE 0.98 mg/dL (0.70-1.30); EST CRCL DRUG DOSING (CG) 135.14 mL/min; GLUCOSE RANDOM 96 mg/dL (70-99); POTASSIUM,K 3.9 mmol/L (3.5-5.1); PROTEIN TOTAL,TP 7.3 g/dL (6.4-8.2); SODIUM,NA 141 mmol/L (136-145)
[2023-04-06 13:02] LABS: ESTIMATED GFR 110 mL/min (>=60)
== END 2023-04-06 14:20 | disposition home or self-care (01) ==
LOC: DL.ED 12:00
DX: R55 Syncope and collapse (principal); F17.210 Nicotine dependence, cigarettes, uncomplicated; E66.9 Obesity, unspecified; Z68.44 Body mass index [BMI] 60.0-69.9, adult; Z88.0 Allergy status to penicillin
CPT/HCPCS: 36415; 71045; 80053; 84484; 85025; 85379; 93005; 93010; 99283; 99284; J3490

== ENCOUNTER 2023-11-08 13:21 | Emergency (ER) | payer SELFPAY ==
[2023-11-08] MEDS: Diphtheria,Pertussis(Acell),Tetanus Vaccine 0.5 ML Syringe IM ONE (13:45)
[2023-11-08 13:56] VITALS: BP 157/101; PULSE 120
== END 2023-11-08 14:05 | disposition home or self-care (01) ==
LOC: DL.ED 13:21
DX: S61.432A Puncture wound without foreign body of left hand, initial encounter (principal); E66.9 Obesity, unspecified; Z86.16 Personal history of COVID-19; Z68.44 Body mass index [BMI] 60.0-69.9, adult; Z23 Encounter for immunization; W27.0XXA Contact with workbench tool, initial encounter
CPT/HCPCS: 73120-LT; 90471; 90715; 99283; 99283-25

== ENCOUNTER 2024-08-20 12:57 | Emergency (ER) | payer BC ==
[2024-08-20 14:06] LABS: BASOPHILS PERCENT AUTO 0.1 % (0.0-1.0); EOSINOPHILS PERCENT AUTO 0.8 % (1.0-3.0); HEMATOCRIT 52.8 % (40.0-54.0); HEMOGLOBIN 17.1 g/dL (14.0-18.0); LYMPHOCYTES PERCENT AUTO 4.1 % (20.5-50.1); MEAN CORPUSCULAR HEMOGLOBIN 26.7 pg (27.0-34.0); MEAN CORPUSCULAR HGB CONC 32.4 g/dL (33.0-35.0); MEAN CORPUSCULAR VOLUME 82.4 fL (80-100); PLATELET COUNT,PLT 247 10^3/uL (150-450); RED BLOOD CELL COUNT 6.41 10^6/uL (4.6-6.2); WHITE BLOOD CELL COUNT,WBC 13.4 10^3/uL (5.0-10.0)
[2024-08-20] MEDS: Meclizine 12.5 MG Tab PO ONE ×2 (14:15→15:38)
[2024-08-20] MEDS: Lactated Ringers 1,000 ML IV SCH (14:17)
[2024-08-20 14:21] LABS: PROTHROMBIN TIME 10.3 SEC (9.0-12.0)
[2024-08-20] MEDS: Ondansetron 4 MG/2 ML SDV IVPUSH ONE (14:21)
[2024-08-20] MEDS: Sodium Chloride 0.9% 10 ML Syringe FLUSH PRN (14:21)
[2024-08-20 14:39] LABS: A/G RATIO 0.8; ALANINE AMINOTRANSFERASE,ALT 42 U/L (16-63); ALBUMIN 3.6 g/dL (3.4-5.0); ALKALINE PHOSPHATASE 118 U/L (46-116); ANION GAP 12.5 mEq/L (7-13); ASPARTATE AMNIOTRANSFERASE,AST 39 U/L (15-37); BILIRUBIN TOTAL 0.8 mg/dL (0.2-1.0); BLOOD UREA NITROGEN,BUN 16 mg/dL (7-18); BUN/CREATININE RATIO 19.8 (No establ ref range); C-REACTIVE PROTEIN 2.13 ng/dL (<=0.50); CALCIUM 9.3 mg/dL (8.5-10.1); CARBON DIOXIDE,CO2 29 mmol/L (21-32); CREATININE 0.81 mg/dL (0.70-1.30); EST CRCL DRUG DOSING (CG) 160.68 mL/min; GLUCOSE RANDOM 101 mg/dL (70-99); LIPASE 22 U/L (16-77); MAGNESIUM 1.9 mg/dL (1.8-2.4); PROTEIN TOTAL,TP 7.9 g/dL (6.4-8.2)
[2024-08-20 14:50] LABS: ESTIMATED GFR 125 mL/min (>=60)
[2024-08-20 14:58] LABS: CHLORIDE,CL 103 mmol/L (98-107); POTASSIUM,K 3.8 mmol/L (3.5-5.1); SODIUM,NA 139 mmol/L (136-145)
[2024-08-20] MEDS: Take Home: Ondansetron 4 MG Tab.DIS, 5 Tab Pack PO ONE (15:38)
[2024-08-20] MEDS: Acetaminophen 325 MG Tab PO ONE (15:58)
[2024-08-20 16:10] VITALS: BP 157/95; PULSE 111
== END 2024-08-20 16:00 | disposition home or self-care (01) ==
LOC: DL.ED 12:57
DX: K52.9 Noninfective gastroenteritis and colitis, unspecified (principal); R42 Dizziness and giddiness; Z88.0 Allergy status to penicillin; Z79.899 Other long term (current) drug therapy; Z86.16 Personal history of COVID-19
CPT/HCPCS: 80053; 83690; 83735; 84484; 85025; 85610; 86140; 87428; 93005; 96361; 96374; 99284; A9270; J2405; J7120; Q0162; 93010

== ENCOUNTER 2024-09-24 19:57 | Emergency (ER) | payer BC | END 2024-09-24 20:49 | LOC: DL.ED 19:57 | DX: Z53.21 Procedure and treatment not carried out due to patient leaving prior to being seen by health care provider (principal) ==

== ENCOUNTER 2025-01-14 21:03 | Emergency (ER) | payer BC ==
[2025-01-14] MEDS ORDERED: Sodium Chloride 0.9% 10 ML Syringe FLUSH PRN (21:31)
[2025-01-14 22:29] LABS: PLATELET COUNT,PLT 271 10^3/uL (150-450); RED BLOOD CELL COUNT 5.82 10^6/uL (4.6-6.2); WHITE BLOOD CELL COUNT,WBC 10.6 10^3/uL (5.0-10.0)
[2025-01-14 22:33] LABS: BASOPHILS PERCENT AUTO 0.3 % (0.0-1.0); EOSINOPHILS PERCENT AUTO 3.1 % (1.0-3.0); LYMPHOCYTES PERCENT AUTO 23.4 % (20.5-50.1); MONOCYTES PERCENT AUTO 5.3 % (2-8); NEUTROPHILS PERCENT AUTO 67.9 % (42.2-75.2)
[2025-01-14 23:08] LABS: A/G RATIO 0.9; ALANINE AMINOTRANSFERASE,ALT 47 U/L (16-63); ASPARTATE AMNIOTRANSFERASE,AST 22 U/L (15-37); BILIRUBIN TOTAL 0.3 mg/dL (0.2-1.0); BLOOD UREA NITROGEN,BUN 12 mg/dL (7-18); CARBON DIOXIDE,CO2 29 mmol/L (21-32); CHLORIDE,CL 104 mmol/L (98-107); CREATININE 1.12 mg/dL (0.70-1.30); GLUCOSE RANDOM 123 mg/dL (70-99); POTASSIUM,K 4.1 mmol/L (3.5-5.1); PROTEIN TOTAL,TP 7.9 g/dL (6.4-8.2); SODIUM,NA 139 mmol/L (136-145); TSH ULTRASENSITIVE 9.38 uIU/mL (0.36-3.74)
[2025-01-14 23:29] LABS: ESTIMATED GFR 93 mL/min (>=60); ETHANOL BLOOD MEDICAL < 3 mg/dL (0)
[2025-01-14 23:52] LABS: LACTIC ACID 1.4 mmol/L (0.4-2.0)
[2025-01-14 23:59] VITALS: BP 143/85; PULSE 102
[2025-01-15] LABS: INR 0.9 (0.9-1.2); PTT,PARTIAL THROMBOPLSTIN TIME 25.8 SEC (22.0-34.0)
[2025-01-15 01:43] LABS: EOSINOPHILS PERCENT MAN 5 % (1-3); LYMPHOCYTES PERCENT MAN 24 % (20-50); MONOCYTES PERCENT MAN 5 % (2-8); SEG NEUTROPHILS PERCENT MAN 66 % (42-75)
== END 2025-01-15 00:16 | disposition home or self-care (01) ==
LOC: DL.ED 21:03
DX: E03.9 Hypothyroidism, unspecified (principal); I10 Essential (primary) hypertension; K21.9 Gastro-esophageal reflux disease without esophagitis; Z86.16 Personal history of COVID-19; Z88.0 Allergy status to penicillin; Z79.899 Other long term (current) drug therapy
CPT/HCPCS: 36415; 80053; 80307; 82947; 83605; 83735; 84443; 84484; 85025; 85379; 85610; 85730; 93005; 99284